=== PATIENT | female | born 1945 | race Caucasian/White ===

== ENCOUNTER 2017-11-30 12:36 | Observation (INO) | payer OTHER ==
[~2017-11-30] VITALS: Ht 170.2 cm; Wt 75.8 kg
[~2017-11-30 12:36] MED LIST: AMARYL1 MG PO; AMBIEN10 MG PO; AMOX TR-K CLV1 EAC4 PO; COMBIVENT RESPIM4 GM IH; CYANOCOBALAM1000 MCG PO; DILAUDID2 MG PO; DIPHENOXYLATE/1 EACH PO; FLEXERIL10 MG PO; FLORINEF ACETA0.1 MG PO; GABAPENTIN400 MG PO; GABAPENTIN600 MG PO; GLIMEPIRIDE1 MG PO; GLIMEPIRIDE4 MG PO; GLUCOPHAGE1000 MG PO; INDERAL40 MG PO; MOBIC15 MG PO; NEURONTIN400 MG PO; NEURONTIN600 MG PO; PRILOSEC OTC20 MG PO; PRILOSEC20 MG PO; ROBITUSSIN AC,T10 ML PO; SAVELLA50 MG PO; ST. JOSEPH ASPI81 MG PO; TRIAZOLAM0.25 MG PO; ULTRAM50 MG PO; VITAMIN D31000 UNIT PO; ZOFRAN4 MG PO
[2017-11-30 13:11] LABS: HEMATOCRIT 38.4 % (36.0-46.0); HEMOGLOBIN 12.9 G/DL (11.9-15.5); MCH 30.5 PG (29.0-34.0); MCHC 33.6 G/DL (30.0-36.0); MCV 90.8 FL (83-99); PLATELET COUNT 256 K/uL (156-360); RBC DIS.WIDTH-CV 13.6 % (11.8-14.6); RED BLOOD COUNT 4.23 M/uL (3.80-5.20); WHITE BLOOD COUNT 9.8 K/uL (4.1-10.2)
[2017-11-30 13:25] LABS: CHLORIDE 103 mEq/L (99-109); POTASSIUM 4.4 mEq/L (3.7-5.4); SODIUM 139 mEq/L (136-147)
[2017-11-30 13:26] LABS: GLUCOSE 270 mg/dL (70-99)
[2017-11-30 13:30] LABS: CREATININE 1.2 mg/dL (0.6-1.3); GFR ESTIMATE (CALCULATED) 47 mL/min/; TROP-I INTERPRETATION NEGATIVE; TROPONIN-I < 0.01 ng/mL (0.0-0.30)
[2017-11-30 13:31] LABS: UREA NITROGEN (BUN) 19 mg/dL (9-23)
[2017-11-30 16:47] VITALS: BP 186/90
[2017-11-30 19:14] VITALS: BP 176/79
[2017-11-30 19:28] LABS: TROP-I INTERPRETATION NEGATIVE; TROPONIN-I 0.01 ng/mL (0.0-0.30)
[2017-12-01 00:34] VITALS: BP 189/90
[2017-12-01 01:22] LABS: TROP-I INTERPRETATION NEGATIVE; TROPONIN-I < 0.01 ng/mL (0.0-0.30)
[2017-12-01 02:50] VITALS: BP 143/72
[2017-12-01 07:04] VITALS: BP 134/77
[2017-12-01 11:33] VITALS: BP 174/93
[2017-12-01 12:04] LABS: HEMOGLOBIN A1c (GLYCOHEMOGLOB) 7.7 % (Below 5.7)
[2017-12-01] MEDS ORDERED: LEVEMIR100 UNIT/2 SC (13:50)
[2017-12-01] MEDS ORDERED: ASPIR-LOW81 MG PO (15:06)
[2017-12-01 16:19] VITALS: BP 178/83
== END 2017-12-01 16:23 | disposition home or self-care (01) ==
LOC: EME 12:36 → EDOF 14:38 → ENRESERV 14:45 → EDOF 15:02 → ENRESERV 15:08 → 4SOUTH 16:44
PROVIDERS: Internal Medicine; Physician Assistant Medical
DX: R07.9 Chest pain, unspecified (principal); K21.9 Gastro-esophageal reflux disease without esophagitis; I10 Essential (primary) hypertension; R94.31 Abnormal electrocardiogram [ECG] [EKG]; F17.200 Nicotine dependence, unspecified, uncomplicated; E11.40 Type 2 diabetes mellitus with diabetic neuropathy, unspecified; Z79.82 Long term (current) use of aspirin; Z79.4 Long term (current) use of insulin; M79.7 Fibromyalgia; R11.0 Nausea; F41.9 Anxiety disorder, unspecified; Z88.5 Allergy status to narcotic agent
CPT/HCPCS: 71046; 80048; 82948; 83036; 84484; 85027; 93005; 99202; 99281; 99285; G0378; J0360; J1650; J2405; S0028